=== PATIENT | male | born 1955 | race Caucasian/White ===

== ENCOUNTER → 2022-02-18 | Outpatient (CLI) | payer MEDICARE | LOC: MRI 13:15 | DX: M25.511 Pain in right shoulder (principal); M75.51 Bursitis of right shoulder; M19.011 Primary osteoarthritis, right shoulder | CPT/HCPCS: 73221 ==

== ENCOUNTER 2022-04-16 18:17 | Emergency (ER) | payer MEDICARE ==
[2022-04-16] MEDS ORDERED: AMOXICILLIN875 MG PO (19:11)
== END 2022-04-16 19:30 | disposition home or self-care (01) ==
LOC: ER1 18:17
DX: S00.512A Abrasion of oral cavity, initial encounter (principal); K05.10 Chronic gingivitis, plaque induced; R03.0 Elevated blood-pressure reading, without diagnosis of hypertension; X58.XXXA Exposure to other specified factors, initial encounter
CPT/HCPCS: 99282

== ENCOUNTER 2022-06-02 20:14 | Emergency (ER) | payer MEDICARE ==
[~2022-06-02 20:14] MED LIST: AMOXICILLIN875 MG PO
[2022-06-02 21:01] LABS: HEMOGLOBIN 13.6 gm/dl (14.0-17.5); RED BLOOD COUNT 4.73 M/UL (4.20-5.50); WHITE BLOOD COUNT 11.1 K/UL (4.5-11.0)
[2022-06-02 21:23] LABS: BUN/CREATININE RATIO 27 (0-10)
[2022-06-03] MEDS ORDERED: CEPHALEXIN500 MG PO (00:40)
== END 2022-06-03 00:46 | disposition home or self-care (01) ==
LOC: ER1 20:14
PROVIDERS: Emergency Medicine
DX: N30.00 Acute cystitis without hematuria (principal)
CPT/HCPCS: 80053; 81001; 83690; 85025; 99283